=== PATIENT | female | born 1980 | race Caucasian/White ===

== ENCOUNTER 2023-12-06 16:46 | Emergency (ER) | payer BC ==
[~2023-12-06] VITALS: Ht 154.9 cm; Wt 81.6 kg
[2023-12-06 16:46] VITALS: BP 115/70; TEMP 98.3
[2023-12-06 17:38] LABS: APPEARANCE,URINE Slightly Cloudy (CLEAR); BILIRUBIN,URINE MODERATE (NEGATIVE); BLOOD, URINE Negative Ery/uL (NEGATIVE); COLOR,URINE AMBER (YELLOW); KETONES,URINE 15 mg/dL (NEGATIVE); LEUKOCYTE ESTERASE ,URINE Large (NEGATIVE); NITRITE, URINE Positive (NEGATIVE); PROTEIN,URINE >=300 mg/dl (NEGATIVE); UGLUCOSE 250 MG/DL mg/dL (NEGATIVE)
[2023-12-06 17:40] LABS: PREGNANCY TEST URINE QUAL NEGATIVE (NEGATIVE)
[2023-12-06 18:10] LABS: BACTERIA,URINE Many /HPF (None Seen); RBC,URINE 0-2 /HPF (0-2); SQUAMOUS EPITHELIAL CELL,UR Moderate /HPF (None Seen)
[2023-12-06 18:11] LABS: ADD URINE CULTURE YES; WBC,URINE 21-50 /HPF (0-3)
[2023-12-06] MEDS ORDERED: CEPH500C2 PO (18:44)
[2023-12-06] MEDS ORDERED: CEPHALEXIN MONOHYDRATE 500 MG CAPSULE PO ONE (18:49)
[2023-12-06] MEDS: CEPHALEXIN MONOHYDRATE 500 MG CAPSULE PO ONE (18:52)
[2023-12-06 18:53] VITALS: O2SAT 100
== END 2023-12-06 18:53 | disposition home or self-care (01) ==
LOC: ER 16:48
DX: N39.0 Urinary tract infection, site not specified (principal)
CPT/HCPCS: 81001; 84703-TC; 87086-TC